=== PATIENT | male | born 1995 | race Caucasian/White ===

== ENCOUNTER 2023-06-17 02:11 | Inpatient (IN) | payer SELFPAY ==
[~2023-06-17] VITALS: Ht 172.7 cm; Wt 65.8 kg
[2023-06-17 02:25] VITALS: TEMP 97.8; O2SAT 96
[2023-06-17] MEDS ORDERED: IV LR 1000 ML 1,000 ML BAG IV ONE (02:30)
[2023-06-17 03:22] LABS: BASOPHILS % (AUTO) 0.5 % (0.0-2.0); EOSINOPHILS # (AUTO) 0.1 K/uL (0.0-0.7); EOSINOPHILS % (AUTO) 1.1 % (0.0-6.0); HEMATOCRIT 49 % (39-51); HEMOGLOBIN 16.3 g/dL (13.5-17.5); LYMPHOCYTES % (AUTO) 32.9 % (20.0-44.0); MEAN CORPUSCULAR HEMOGLOBIN 29 PG (26.0-33.0); MEAN CORPUSCULAR HGB CONC 34 g/dl (31.0-36.0); MEAN CORPUSCULAR VOLUME 86 fL (80-96); MONOCYTES # (AUTO) 0.5 K/uL (0.1-1.30); MONOCYTES % (AUTO) 5.7 % (2.0-12.0); NEUTROPHILS # (AUTO) 5.5 K/uL (1.8-8.9); NEUTROPHILS % (AUTO) 59.8 % (43.0-81.0); PLATELET COUNT (AUTO) 144 K/uL (150-450); RED BLOOD CELL COUNT(AUTO) 5.66 MIL/uL (4.5-6.0); RED CELL DISTRIBUTION WIDTH 13.4 % (11.5-15.0); WHITE BLOOD COUNT (AUTO) 9.2 K/uL (4.3-11.0)
[2023-06-17 03:32] LABS: ALCOHOL, BLOOD 198 mg/dL (0-10); CARBON DIOXIDE 21 mmol/L (21-32); CHLORIDE 97 mmol/L (98-107); POTASSIUM 3.5 mmol/L (3.5-5.1); SODIUM SERUM 133 mmol/L (136-145); UREA NITROGEN, BLOOD 9 mg/dL (7-18)
[2023-06-17 03:34] LABS: GLUCOSE 621 mg/dL (74-106)
[2023-06-17 03:37] LABS: APPEARANCE,URINE CLEAR (CLEAR); BILIRUBIN,URINE NEGATIVE (NEGATIVE); BLOOD, URINE TRACE-INTA Ery/uL (NEGATIVE); COLOR,URINE YELLOW (YELLOW); KETONES,URINE TRACE mg/dL (NEGATIVE); LEUKOCYTE ESTERASE ,URINE NEGATIVE (NEGATIVE); NITRITE, URINE NEGATIVE (NEGATIVE); PH,URINE 5.5 (5.0-8.0); PROTEIN,URINE NEGATIVE (NEGATIVE); UGLUCOSE 3+ mg/dL (NEGATIVE); UROBILINOGEN,URINE 0.2 EU/dL (0.2)
[2023-06-17 04:00] LABS: ACETONE, SERUM NEGATIVE (NEGATIVE)
[2023-06-17 04:26] LABS: RBC,URINE 0-2 /HPF (0-2); WBC,URINE 0-2 /HPF (0-3)
[2023-06-17 04:27] LABS: ADD URINE CULTURE NO; BACTERIA,URINE None seen /HPF (None Seen); SQUAMOUS EPITHELIAL CELL,UR None Seen /HPF (None Seen)
[2023-06-17] MEDS ORDERED: INSULIN REGULAR, HUMAN 100 UNITS in IV NS 0.9% 100 ML IV PRN ×2 (04:30)
[2023-06-17] MEDS ORDERED: IV PREMIX NS +20MEQ KCL 1 L IV PRN (04:30)
[2023-06-17] MEDS ORDERED: INSULIN REGULAR, HUMAN 100 UNIT/ML 10 ML VIAL ONE (05:06)
[2023-06-17 05:21] LABS: CALCIUM, SERUM 8.4 mg/dL (8.5-10.1); CREATININE 0.8 mg/dL (0.6-1.3); POTASSIUM 3.7 mmol/L (3.5-5.1)
[2023-06-17 05:24] LABS: MAGNESIUM 1.8 mg/dL (1.8-2.4); PHOSPHORUS 3.8 mg/dL (2.5-4.9)
[2023-06-17 06:49] LABS: SITE, VBG Other; VBG BASE EXCESS -7.5 mmol/L (-3-3); VBG COHb 0.7 %; VBG MetHb 0.4 %; VBG O2Hb 79.5 %; VBG OXYGEN SATURATION 80.4 %; VBG PCO2 36.2 mmHg (40-52); VBG PH 7.309 (7.31-7.41); VBG TOTAL HEMOGLOBIN 17.9 G/dL (13.5-18.0); VENT MODE, VBG room air
[2023-06-17 07:03] LABS: CALCIUM, SERUM 8.6 mg/dL (8.5-10.1); CREATININE 0.7 mg/dL (0.6-1.3); POTASSIUM 3.6 mmol/L (3.5-5.1)
[2023-06-17 07:09] LABS: MAGNESIUM 2.1 mg/dL (1.8-2.4); PHOSPHORUS 3.4 mg/dL (2.5-4.9)
[2023-06-17] MEDS ORDERED: ZOLPIDEM TARTRATE 5 MG TABLET PO PRN (07:30)
[2023-06-17] MEDS ORDERED: ONDANSETRON HCL/PF 4 MG/2 ML VIAL IVP PRN (07:30)
[2023-06-17] MEDS ORDERED: IV NS 0.9% 1,000 ML IV PRN (07:30)
[2023-06-17] MEDS ORDERED: ACETAMINOPHEN 325 MG TABLET PO PRN (07:30)
[2023-06-17] MEDS ORDERED: MAGNESIUM HYDROXIDE 30 ML UDC PO PRN (07:30)
[2023-06-17] MEDS ORDERED: Z GUARD REMEDY 4 OZ OINT TP PRN (07:30)
[2023-06-17] MEDS ORDERED: MAG HYDROX/AL HYDROX/SIMETH 30 ML UDC PO PRN (07:30)
[2023-06-17] MEDS ORDERED: INSULIN REGULAR, HUMAN 100 UNIT in IV NS 0.9% 99 ML IV PRN ×2 (07:30)
[2023-06-17] MEDS ORDERED: GABA-536 PO (07:51)
[2023-06-17] MEDS ORDERED: METO25TA20 PO (07:51)
[2023-06-17] MEDS ORDERED: INSU200I4 SQ (07:51)
[2023-06-17] MEDS ORDERED: INSU100I33 SQ (07:51)
[2023-06-17] MEDS ORDERED: METF-442 PO (07:51)
[2023-06-17 09:00] VITALS: BP 108/73; O2SAT 96
[2023-06-17 09:03] LABS: BASOPHILS % (AUTO) 0.4 % (0.0-2.0); EOSINOPHILS # (AUTO) 0.1 K/uL (0.0-0.7); EOSINOPHILS % (AUTO) 1.5 % (0.0-6.0); HEMATOCRIT 46 % (39-51); HEMOGLOBIN 15.7 g/dL (13.5-17.5); LYMPHOCYTES # (AUTO) 3.6 K/uL (0.8-4.8); LYMPHOCYTES % (AUTO) 36.7 % (20.0-44.0); MEAN CORPUSCULAR HEMOGLOBIN 29 PG (26.0-33.0); MEAN CORPUSCULAR HGB CONC 34 g/dl (31.0-36.0); MEAN CORPUSCULAR VOLUME 86 fL (80-96); MONOCYTES # (AUTO) 0.6 K/uL (0.1-1.30); MONOCYTES % (AUTO) 6.4 % (2.0-12.0); NEUTROPHILS # (AUTO) 5.4 K/uL (1.8-8.9); PLATELET COUNT (AUTO) 141 K/uL (150-450); RED BLOOD CELL COUNT(AUTO) 5.37 MIL/uL (4.5-6.0); RED CELL DISTRIBUTION WIDTH 13.7 % (11.5-15.0); WHITE BLOOD COUNT (AUTO) 9.9 K/uL (4.3-11.0)
[2023-06-17 09:20] LABS: CALCIUM, SERUM 8.5 mg/dL (8.5-10.1); CREATININE 0.6 mg/dL (0.6-1.3); MAGNESIUM 2.1 mg/dL (1.8-2.4); PHOSPHORUS 2.3 mg/dL (2.5-4.9); POTASSIUM 3.3 mmol/L (3.5-5.1)
[2023-06-17 10:00] VITALS: BP 128/86; O2SAT 96
[2023-06-17] MEDS: BLOOD SUGAR DIAGNOSTIC 1 EACH STRIP IN SCH (10:33)
== END 2023-06-17 10:29 | disposition left against medical advice (07) | DRG 639 ==
LOC: ER 02:12 → ICU 07:56
PROVIDERS: ADMIT Internal Medicine; ATTEND Internal Medicine
PROC: 05H933Z Insertion of Infusion Device into Right Brachial Vein, Percutaneous Approach (ICD-10-PCS; principal; 2023-06-17)
DX: E10.10 Type 1 diabetes mellitus with ketoacidosis without coma (principal); I48.91 Unspecified atrial fibrillation; Z88.8 Allergy status to other drugs, medicaments and biological substances
CPT/HCPCS: 36410; 36415; 80048-TC; 81001; 82010-TC; 82803-TC; 82962-TC; 83735-TC; 84100-TC; 85025-TC; A4223; G0378; G0480; J1815; J3490; J7030; J7120

== ENCOUNTER 2025-01-30 20:22 | Emergency (ER) | payer BC ==
[~2025-01-30] VITALS: Ht 167.6 cm; Wt 85.7 kg
[~2025-01-30 20:22] MED LIST: GABA-536 PO; INSU100I33 SQ; INSU200I4 SQ; METF-442 PO; METO25TA20 PO
[2025-01-30] MEDS ORDERED: LIDOCAINE HCL/MPF 1% 30 ML VIAL IJ ONE (23:28)
[2025-01-30] MEDS ORDERED: CLINDAMYCIN HCL 150 MG CAPSULE ONE (23:29)
[2025-01-30] MEDS: CLINDAMYCIN HCL 150 MG CAPSULE PO ONE (23:42)
[2025-01-30] MEDS: LIDOCAINE HCL/PF 1% 30 ML VIAL TP ONE (23:42)
[2025-01-31] MEDS ORDERED: CLIN300C12 PO (00:37)
[2025-01-31 00:56] VITALS: BP 133/78; TEMP 98.4; O2SAT 99
== END 2025-01-31 00:57 | disposition home or self-care (01) ==
LOC: ER 20:23
DX: L02.511 Cutaneous abscess of right hand (principal); E11.69 Type 2 diabetes mellitus with other specified complication; M79.89 Other specified soft tissue disorders; Z88.0 Allergy status to penicillin; Z79.4 Long term (current) use of insulin; Z79.84 Long term (current) use of oral hypoglycemic drugs; Z79.899 Other long term (current) drug therapy
CPT/HCPCS: 64450; 99284; J3490 ×2